=== PATIENT | female | born 1990 | race Asian ===

== ENCOUNTER → 2016-08-13 | Outpatient (CLI) | payer MEDICAID ==
[~2016-08-13] MED LIST: ACET1TAB86 PO; CONCCAP2 PO; IBUP-232 PO; ONETMIS2; ONETTES4; PREN1MIS11 PO
== END ==
LOC: CDED 08:27
DX: O24.419 Gestational diabetes mellitus in pregnancy, unspecified control (principal)
CPT/HCPCS: 97802

== ENCOUNTER 2016-10-20 09:39 | Inpatient (IN) | payer MEDICAID ==
[2016-10-20] VITALS (61 sets, daily range): BP systolic 100–129; BP diastolic 55–91; PULSE 72–113; RESP 18; TEMP 97.7–98.2
[~2016-10-20 09:39] MED LIST changes: -ACET1TAB86 PO; -IBUP-232 PO
[2016-10-20] MEDS ORDERED: LACTATED RINGER'S 1000 ML INJ 1,000 ML IV PRN (10:59)
[2016-10-20] MEDS ORDERED: ONDANSETRON HCL 4 MG/2 ML VIAL IV PRN (11:00)
[2016-10-20] MEDS ORDERED: OXYTOCIN 30 UNITS-500ML PREMIX 500 ML IV ONE (11:00)
[2016-10-20] MEDS ORDERED: MINERAL OIL 10 ML VIAL TOPICAL PRN (11:00)
[2016-10-20] MEDS ORDERED: LIDOCAINE HCL 1% 50 ML VIAL I-DERMAL PRN (11:00)
[2016-10-20] MEDS ORDERED: LIDOCAINE HCL 1% 50 ML VIAL INFIL PRN (11:00)
[2016-10-20] MEDS ORDERED: SODIUM CHLORID 0.9% 500 ML INJ 500 ML IV PRN (11:00)
[2016-10-20] MEDS ORDERED: CITRIC ACID-SODIUM CITRATE LIQ 30 ML UDC PO SCH (11:00)
[2016-10-20] MEDS ORDERED: SODIUM CHLOR 0.9% 1000 ML INJ 1,000 ML IV PRN (11:19)
--- NOTE | 2016-10-20 11:30 | HHI.HP ---
History & Physical H&P HPI HPI Chief Complaint Contractions Date Seen: October 20, 2016 Time Seen: 11:00 Travel History International Travel<30 Days: No Contact w/Intl Traveler<30Days: No Known Affected Area: No History of Present Illness HPI Patient is a 26-year-old at 39 weeks and 5 days presents with contractions since last night. Patient reports that she first started feeling contractions around 12 AM to 1 AM last night. She then fell asleep. She woke up from sleep a couple of times with abdominal pain. From 7 AM to 8 AM, she noticed that she was having contractions about every 6 minutes. She reports having 10 contractions in an hour. In addition to her bilateral suprapubic crampy abdominal pain, she also endorses some bilateral lower back pain. She denies any leakage of fluid, vaginal bleeding. She endorses movement. Review of systems negative. Para: 0 : 1 History (Limited) History Past Medical History Narrative Medical Patient with a history of gestational diabetes controlled with diet this . Obstetric History Obstetric History Patient reports that this is her first . Past Surgical History Surgical History: No Previous Surgery Family History Family History: Negative Allergies-Medications Allergies-Medications (Allergen,Severity, Reaction): Coded Allergies: No Known Allergies (Unverified , 10/19/16) Home Meds Active Scripts Onetouch Lancets 1 Mis Mis #1 BOX .ROUTE DIRECTED Ref 6 Prov:Joan Monroe CNM [facility] 08/13/16 Onetouch Ultra Test Strips 1 Shanta Shanta #1 STRIP .ROUTE QID PRN (blood sugar) Ref 6 Prov:Joan Monroe CNM [facility] 08/13/16 Vit W/ Fe Fum-Iron Po (Concept Dha 53.5-38-1 mg)1 Cap Cap1 Cap PO DAILY #60 BOTTLE Ref 8 Prov:Joan Monroe CNM [facility] 07/05/16 W/O Vit A W/ Fe Carbo Pack (Citranatal 90 Dha Pack)90-1 & 300 Mg Pack1 Ea PO DAILY #6 BLISTER Ref 11 30 day supply. Prov:Parul Pradhan [facility] 04/07/16 W/O Vit A W/ Fe Carbo Pack (Citranatal 90 Dha Pack)90-1 & 300 Mg Pack Sample #2 Prov:Joan Monroe CNM [facility] 04/07/16 ROS Review of Systems General / Constitutional: No: Fever, Chills Eyes: No: Blurred Vision, Visual changes HENT: No: Headaches Cardiovascular: No: Chest Pain or Discomfort, Edema Respiratory: No: Short of Breath Gastrointestinal: Abdominal Pain (bilateral suprapubic crampy abdominal pain), No: Nausea, Vomiting Genitourinary: No: Dysuria Musculoskeletal: No: Edema Neurologic: No: Headache Physical Exam Physical Exam Borderline tachycardic with a pulse of 99, but otherwise afebrile with vital signs stable and within normal limits. Narrative GENERAL: Well-nourished, well-developed patient. SKIN: Warm and dry. HEAD: Normocephalic and atraumatic. EYES: No scleral icterus. No injection or drainage. ENT: No nasal drainage noted. Mucous membranes pink. Airway patent. NECK: Supple, trachea midline. No JVD. CARDIOVASCULAR: Regular rate and rhythm without murmurs, gallops, or rubs. RESPIRATORY: Breath sounds equal bilaterally. No accessory muscle use. ABDOMEN/GI: Abdomen soft, non-tender, bowel sounds present, no rebound, no guarding Gravid to 40 weeks size GENITOURINARY: External Genitalia: intact and normal in appearance Cervix: Mid position Dilatation: 3 cm Effacement: 90% Station: 0 station Presentation: Vertex Membranes: intact Uterine Contractions: Every 3 minutes FHT's: Category: Category 1 Baseline: 140 Reactive: + Variability: Moderate Decels: None EXTREMITIES: No cyanosis or edema. BACK: Nontender without obvious deformity. No CVA tenderness. NEUROLOGICAL: Awake and alert. Motor and sensory grossly within normal limits. Five out of 5 muscle strength in all muscle groups. Normal speech. Data Data Data Vital Signs Reviewed: Yes Orders Vital Signs (Adult) .ON ADMISSION (10/20/16 10:58) ^ Labor Status (10/20/16 10:58) ^ Non Stress Test (10/20/16 10:58) Ob (2e) Additional Admit Info (10/20/16 10:57) Admit To Inpatient (10/20/16 ) Code Status (10/20/16 10:59) Vital Signs (Adult) .Per protocol (10/20/16 10:59) Activity Oob Ad Nino (10/20/16 10:59) Heart (10/20/16 10:59) Amnioinfusion (10/20/16 10:59) Diet Liquid (10/20/16 Lunch) Lactated Ringer's 1000 Ml Inj (Lr 1000 M (10/20/16 10:59) Lactated Ringer's 1000 Ml Inj (Lr 1000 M (10/20/16 10:59) Sodium Chlorid 0.9% 500 Ml Inj (Ns 500 M (10/20/16 11:00) Sodium Chlor 0.9% 1000 Ml Inj (Ns 1000 M (10/20/16 11:19) Lidocaine 1% Inj (50 Ml) (Xylocaine 1% I (10/20/16 11:00) Citric Acid-Sodium Citrate Liq (Bicitra (10/20/16 11:00) Ondansetron Inj (Zofran Inj) (10/20/16 11:00) Fentanyl Inj (Fentanyl Inj) (10/20/16 11:00) Fentanyl Inj (Fentanyl Inj) (10/20/16 11:00) Complete Blood Count With Diff (10/20/16 10:59) Hold Clot (10/20/16 10:59) Abo/Rh Blood Type (10/20/16 10:59) Urinalysis - C+S If Indicated (10/20/16 10:59) Type And Screen (10/20/16 10:59) Resp Oxygen Non Rebreathe Mask (10/20/16 ) Oxytocin 30 Units-500ml Premix (Pitocin (10/20/16 11:00) Lidocaine 1% Inj (50 Ml) (Xylocaine 1% I (10/20/16 11:00) Light Mineral Oil (Muri-Lube Oil) (10/20/16 11:00) Inpatient Certification (10/20/16 ) MDM MDM Plan Patient is a 26-year-old at 39 weeks and 5 days with a history of gestational diabetes diet controlled this who presents with contractions since last night. From 7 AM to 8 AM, she noticed that she was having contractions about every 6 minutes. On monitors here, she's having contractions every 3 minutes. Cervical exam showed 3 cm of dilation, 90% effaced , 0 station, vertex with membranes intact. FHT shows category 1 tracing, reassuring. Patient is GBS negative. Patient is requesting an epidural. 1. active labor Admit to inpatient Mineral oil Lidocaine Type and screen, UA, ABO/Rh blood type, hold clot, CBC Fentanyl Zofran Citric acid-sodium citrate liquid Clear liquid diet Monitor heart rate Monitor maternal vital signs Out of bed ad nino with category 1 tracing until patient gets epidural Epidural and garza cath Plan to recheck patient in about an hour. If patient is not progressing, will artificially rupture membranes. SDW Dr. Willard Diagnosis Diagnosis: Primary Impression: Labor and delivery, indication for care Additional Impression: Labor and delivery indication for care or intervention Zafar Jameson MD R1 October 20, 2016 11:30
[2016-10-20 11:35] LABS: AUTOMATED NEUTROPHIL # 7.9 TH/MM3 (1.8-7.7); BASOPHIL % 0.4 % (0.0-2.0); EOSINOPHIL # 0.1 TH/MM3 (0-0.4); EOSINOPHIL % 0.6 % (0.0-4.0); HEMATOCRIT 39.2 % (35.0-46.0); HEMO FLAGS DIFF FINAL; LYMPH % 13.8 % (9.0-44.0); LYMPHOCYTE # 1.4 TH/MM3 (1.0-4.8); MEAN CELL VOLUME 88.6 FL (80.0-100.0); MEAN CORPUSCULAR HEMOGLOBIN 29.5 PG (27.0-34.0); MEAN CORPUSCULAR HGB CONC 33.3 % (32.0-36.0); MONO % 6.6 % (0.0-8.0); NEUT % 78.6 % (16.0-70.0); PLATELET COUNT 168 TH/MM3 (150-450); RED BLOOD COUNT 4.43 MIL/MM3 (4.00-5.30)
[2016-10-20 11:41] LABS: BACTERIA, URINE RARE /hpf; BLOOD, URINE NEG (NEG); COMMENT (UR) CULT NOT INDICATED; CULTURE IF INDICATED CULT NOT INDICATED; GLUCOSE,URINE NEG (NEG); KETONE, URINE NEG (NEG); NITRITE,URINE NEG (NEG); SQUAMOUS EPITHELIAL CELL URINE <1 /hpf (0-5); URINE COLOR YELLOW (YELLW/STRAW)
[2016-10-20] MEDS: LACTATED RINGER'S 1000 ML INJ 1,000 ML IV SCH ×4 (12:22→18:28)
--- NOTE | 2016-10-20 13:04 | PD.LABORPN ---
Subjective Subjective Patient is a 26-year-old at 39 weeks and 5 days with a history of diet controlled gestational diabetes this who presents with contractions since last night. About every 6 minutes this morning, and having contractions every 3 minutes when she arrived here. Patient admitted in active labor with contractions and cervical dilation of 3cm. Contractions felt subjectively but not seen on monitor. Objective Vital Signs Vital Signs Date Time Temp Pulse Resp B/P Pulse Ox O2 Delivery O2 Flow Rate FiO2 10/20/16 11:30 89 117/86 10/20/16 11:30 18 Objective Vitals: Afebrile and vital signs stable and within normal limits. General: alert/oriented times 3, resting comfortably in no acute distress. CVS-extremities warm and well-perfused Breathing comfortably with no signs of respiratory distress or accessory muscle use Abd- soft, nt/nd EFM- Cat I: reactive/reassuring Contractions- q 1-2 minutes Pelvic Exam: Cervix: Dilatation: 3-4cm Effacement: 90% Station: 0 Presentation: vertex Membranes: Artificially ruptured Uterine Contractions: not seen on monitor FHT's: Category: Category 1 Baseline: 145 Reactive: + Variability: moderate Decels: none Assessment/Plan Problem List: (1) Labor and delivery, indication for care (2) Labor and delivery indication for care or intervention Assessment and Plan A/P: Patient is a 26-year-old at 39 weeks and 5 days with a history of diet controlled gestational diabetes this who presents with active labor. -AROM performed after discussed it in depth with the patient -IUPC placed -Plan on cervical check again in an hour. If not progressing, will start Pitocin. JUDAH Willard. Zafar Jameson MD R1 October 20, 2016 13:04
--- NOTE | 2016-10-20 15:49 | PD.LABORPN ---
Subjective Subjective Patient is a 26-year-old at 39 weeks and 5 days with a history of diet controlled gestational diabetes this who presents with contractions since last night. Patient admitted in active labor with contractions and cervical dilation of 3cm. s/p AROM and IUPC. Objective Vital Signs Vital Signs Date Time Temp Pulse Resp B/P Pulse Ox O2 Delivery O2 Flow Rate FiO2 10/20/16 15:07 18 10/20/16 15:07 80 115/71 10/20/16 14:00 97.9 18 10/20/16 14:00 72 119/72 10/20/16 12:59 83 119/79 10/20/16 12:58 18 10/20/16 11:30 89 117/86 10/20/16 11:30 18 Objective Pelvic Exam: Cervix: Dilatation: 4-5cm Effacement: 100% Station: 1 Presentation: Vertex Membranes:. Uterine Contractions: q3min FHT's: Category: Category 1 Baseline: 135 Reactive: + Variability: Moderate Decels: none Assessment/Plan Problem List: (1) Labor and delivery, indication for care (2) Labor and delivery indication for care or intervention Assessment and Plan Patient is a 26-year-old at 39 weeks and 5 days with a history of diet controlled gestational diabetes this who presents with contractions since last night. Patient admitted in active labor. Currently 4-5cm/100%/+1. s/ p AROM and IUPC. 1. Active labor Start Pitocin IV titration s/d/w Dr. Willard. Zafar Jameson MD R1 October 20, 2016 15:49
[2016-10-20] MEDS ORDERED: MEASLES, MUMPS, RUBELLA VACCINE 0.5 ML VIAL SQ ONE (16:00)
[2016-10-20] MEDS ORDERED: DIPHTH/TETANUS/ACEL PERTUSSIS (BOOSTER) 0.5 ML VIAL/PFS IM ONE (16:00)
[2016-10-20] MEDS: OXYTOCIN 30 UNITS-500ML PREMIX 500 ML IV SCH ×2 (16:10→16:15)
[2016-10-20] MEDS ORDERED: fentaNYL 2MCG-BUPIV 0.125% INJ 100 ML ONE (16:14)
[2016-10-20] MEDS ORDERED: NO SYSTEM NARCOTICS PRN (18:00)
[2016-10-20] MEDS ORDERED: ePHEDrine/NS 25 MG/5 ML SYR IV PRN (18:00)
[2016-10-20] MEDS ORDERED: DO NOT ADMINISTER ANTICOAGULANTS PRN (18:00)
[2016-10-20] MEDS ORDERED: fentaNYL 2MCG-BUPIV 0.125% 100 ML EPIDURAL SCH (18:00)
[2016-10-20] MEDS ORDERED: ONDANSETRON ODT 4 MG TAB PO PRN (20:30)
[2016-10-20] MEDS ORDERED: ZOLPIDEM TARTRATE 5 MG TAB PO PRN (20:30)
[2016-10-20] MEDS ORDERED: oxyCODONE/ACETAMINOPHEN 5 MG/325 MG TAB PO PRN ×2 (20:30)
[2016-10-20] MEDS ORDERED: SODIUM CHLORIDE 0.9% FLUSH 10 ML FLUSH IV FLUSH PRN (20:30)
[2016-10-20] MEDS ORDERED: WITCH HAZEL 50%/GLYCERIN 12.5% 40 PAD JAR TOPICAL PRN (20:30)
[2016-10-20] MEDS ORDERED: DOCUSATE SODIUM 50 MG/SENNA 8.6 MG TAB PO PRN (20:30)
[2016-10-20] MEDS ORDERED: ALUMINUM/MAGNESIUM/SIMETH 30 ML CUP PO PRN (20:30)
[2016-10-20] MEDS ORDERED: BENZOCAINE 20% TOPICAL SPRAY 60 ML CAN TOPICAL PRN (20:30)
--- NOTE | 2016-10-20 20:42 | PD.OB.DELI ---
Delivery Date: October 20, 2016 Anesthesia: None, Epidural Episiotomy: None Vaginal Delivery: Normal Presentation: Occiput anterior Nuchal Cord: None Delayed cord clamping (45 sec): Yes Infant: Female One Minute : 7 Five Minute : 8 Weight: 2970g Placenta: Spontaneous delivery, Intact, 3 vessel cord Laceration: Perineal laceration, 2 deg Repair: Chromic running (2-0 suture x1) Additional Information Terminal meconium. 2nd degree perineal laceration repaired with running 2-[address] Willard. Assisted by Dr. Lee. Zafar Jameson MD R1 October 20, 2016 20:42
[2016-10-20] MEDS ORDERED: SODIUM CHLORIDE 0.9% FLUSH 10 ML FLUSH IV FLUSH SCH (21:00)
--- NOTE | 2016-10-21 09:00 | HHI.OB ---
Subjective Post Day: 1 Remarks Patient is a 26-year-old delivered at 39 weeks and 5 days. Patient is day 1 after . Patient's pain is well-controlled. Patient reports drinking water without any nausea or vomiting, but she has not tried eating yet. Patient reports vaginal bleeding that is crate opener than a period and getting better. Patient has not passed gas or bowel movements. Patient is walking without lower extremity pain or shortness of breath or chest pain. Patient reports desire for contraception through her PCP and bottle-feeding. Objective Vitals/I&O Vital Signs remarkable for some tachycardia up to 100 bpm, but otherwise AF asnd VSS. Date Time Temp Pulse Resp B/P Pulse Ox O2 Delivery O2 Flow Rate FiO2 10/20/16 23:00 97.7 18 10/20/16 23:00 93 121/79 10/20/16 22:10 18 10/20/16 22:00 98 117/77 10/20/16 21:49 18 10/20/16 21:45 100 114/70 10/20/16 21:30 98 112/69 10/20/16 21:25 18 10/20/16 21:16 106 114/81 10/20/16 21:10 18 10/20/16 21:00 91 116/70 10/20/16 20:55 18 10/20/16 20:45 103 112/82 10/20/16 20:40 18 10/20/16 20:31 102 108/67 10/20/16 20:30 104 10/20/16 20:20 18 10/20/16 20:20 98.2 10/20/16 20:15 111 117/70 10/20/16 20:14 18 10/20/16 20:12 108 119/68 10/20/16 19:07 98.1 10/20/16 19:05 98 10/20/16 19:00 98 107/67 10/20/16 19:00 92 10/20/16 18:55 96 10/20/16 18:50 95 10/20/16 18:45 89 10/20/16 18:40 95 10/20/16 18:35 90 10/20/16 18:30 93 109/67 10/20/16 18:30 87 10/20/16 18:27 85 106/63 10/20/16 18:27 18 10/20/16 18:25 82 10/20/16 18:20 87 10/20/16 18:15 76 10/20/16 18:10 73 10/20/16 18:05 74 10/20/16 18:00 72 116/73 10/20/16 18:00 81 10/20/16 17:40 82 10/20/16 17:40 18 10/20/16 17:40 98.1 10/20/16 17:35 75 10/20/16 17:30 86 112/73 10/20/16 17:30 85 10/20/16 17:16 88 10/20/16 17:16 113/80 10/20/16 17:15 84 10/20/16 17:05 111 10/20/16 17:00 88 10/20/16 17:00 83 113/70 10/20/16 17:00 18 10/20/16 16:55 78 10/20/16 16:55 77 116/83 10/20/16 16:50 91 10/20/16 16:50 87 110/70 10/20/16 16:45 113 10/20/16 16:45 82 121/89 10/20/16 16:40 93 10/20/16 16:40 91 115/71 10/20/16 16:35 86 115/70 10/20/16 16:35 85 10/20/16 16:32 18 10/20/16 16:30 86 111/73 10/20/16 16:30 86 10/20/16 16:27 92 122/74 10/20/16 16:25 83 10/20/16 16:25 90 129/75 10/20/16 16:21 97 100/55 10/20/16 16:20 99 10/20/16 16:19 103 120/91 10/20/16 16:13 122/79 10/20/16 16:13 81 10/20/16 16:00 86 113/80 10/20/16 15:07 18 10/20/16 15:07 80 115/71 10/20/16 14:00 97.9 18 10/20/16 14:00 72 119/72 10/20/16 12:59 83 119/79 10/20/16 12:58 18 10/20/16 11:30 89 117/86 10/20/16 11:30 18 Objective Remarks GENERAL: Well-nourished, well-developed patient. CARDIOVASCULAR: Regular rate and rhythm without murmurs, gallops, or rubs. RESPIRATORY: Breath sounds equal bilaterally. No accessory muscle use. ABDOMEN/GI: Abdomen soft, non-tender. Fundus: Firm, non-tender at umbilicus. GENITOURINARY: Light to moderate bleeding. EXTREMITIES: No cyanosis or edema, non-tender, without signs of DVT. Medications and IVs Current Medications Medications (Trade) Dose Ordered Sig/Lucia Route Start Time Stop Time Status Last Admin Miscellaneous Information No systemic narcotics to be given except... UNSCH PRN .XX 10/20/16 18:00 10/21/16 17:59 Miscellaneous Information DO NOT ADMINISTER ANY ANTICOAGUL... UNSCH PRN .XX 10/20/16 18:00 10/21/16 17:59 (ePHEDrine/NS 25 MG/5 ML SYR) 10 mg UNSCH PRN IV 10/20/16 18:00 10/21/16 17:59 (NS Flush) 2 ml BID IV FLUSH 10/20/16 21:00 (NS Flush) 2 ml UNSCH PRN IV FLUSH 10/20/16 20:30 (Tylenol) 650 mg Q4H PRN PO 10/20/16 20:30 (Motrin) 600 mg Q6H PRN PO 10/20/16 20:30 (Percocet 5-325 Mg) 1 tab Q4H PRN PO 10/20/16 20:30 (Percocet 5-325 Mg) 2 tab Q4H PRN PO 10/20/16 20:30 (Americaine 20% Top Spr) 1 spray Q4H PRN TOPICAL 10/20/16 20:30 (Tucks Pads) 1 applic QID PRN TOPICAL 10/20/16 20:30 (Lisa-Colace) 2 tab Q12H PRN PO 10/20/16 20:30 (Ambien) 5 mg HS PRN PO 10/20/16 20:30 (Mag-Al Plus Susp Liq) 15 ml Q8H PRN PO 10/20/16 20:30 (Zofran Odt) 4 mg Q6H PRN PO 10/20/16 20:30 Assessment/Plan Problem List: (1) Labor and delivery, indication for care (2) Labor and delivery indication for care or intervention Assessment and Plan Patient is a 26-year-old delivered at 39 weeks and 5 days. Patient is day 1 after . Patient was counseled to do 6 weeks of pelvic rest. Patient was counseled to follow up in 6 weeks. Patient will request follow-up and contraception through her PCP. --AF VSS --Continue routine care --Motrin and Percocet when necessary for pain --Encourage OOB --Pelvic rest for 6 weeks will need follow-up appointment at that time. --Contraception through PCP. --Anticipate discharge tomorrow D/w Dr. Willard. Zafar Jameson MD R1 Oct 21, 2016 09:00
[2016-10-21] MEDS: IBUPROFEN 600 MG TAB PO PRN ×2 (12:08→21:19)
[2016-10-21] MEDS: ACETAMINOPHEN 325 MG TAB PO PRN ×2 (12:08→21:20)
--- NOTE | 2016-10-22 09:25 | HHI.OB ---
Subjective Post Day: 2 Remarks Patient is a 26-year-old delivered at 39 weeks and 5 days. Patient is day 2 after . Patient reports that she had a lot of pain overnight, but that her pain is otherwise well-controlled. Patient reports eating and drinking without any nausea or vomiting. Patient reports normal bleeding. Patient has passed gas and a bowel movement. Patient is walking without lower extremity pain or shortness of breath. Patient reports desire for contraception through her PCP and bottle-feeding. (Zafar Jameson MD R1) Objective Vitals/I&O Patient tachycardic to the 100s overnight but otherwise afebrile and vital signs stable overnight. Objective Remarks GENERAL: Well-nourished, well-developed patient. CARDIOVASCULAR: Regular rate and rhythm without murmurs, gallops, or rubs. RESPIRATORY: Breath sounds equal bilaterally. No accessory muscle use. ABDOMEN/GI: Abdomen soft, non-tender. Fundus: Firm, non-tender at umbilicus. GENITOURINARY: Light to moderate bleeding. EXTREMITIES: No cyanosis or edema, non-tender, without signs of DVT. Medications and IVs Current Medications Medications (Trade) Dose Ordered Sig/Lucia Route Start Time Stop Time Status Last Admin (NS Flush) 2 ml BID IV FLUSH 10/20/16 21:00 (NS Flush) 2 ml UNSCH PRN IV FLUSH 10/20/16 20:30 (Tylenol) 650 mg Q4H PRN PO 10/20/16 20:30 10/21/16 21:20 (Motrin) 600 mg Q6H PRN PO 10/20/16 20:30 10/21/16 21:19 (Percocet 5-325 Mg) 1 tab Q4H PRN PO 10/20/16 20:30 (Percocet 5-325 Mg) 2 tab Q4H PRN PO 10/20/16 20:30 (Americaine 20% Top Spr) 1 spray Q4H PRN TOPICAL 10/20/16 20:30 (Tucks Pads) 1 applic QID PRN TOPICAL 10/20/16 20:30 (Lisa-Colace) 2 tab Q12H PRN PO 10/20/16 20:30 10/21/16 12:08 (Ambien) 5 mg HS PRN PO 10/20/16 20:30 (Mag-Al Plus Susp Liq) 15 ml Q8H PRN PO 10/20/16 20:30 (Zofran Odt) 4 mg Q6H PRN PO 10/20/16 20:30 (Zafar Jameson MD R1) Assessment/Plan Problem List: (1) Labor and delivery, indication for care (2) Labor and delivery indication for care or intervention (3) (normal spontaneous vaginal delivery) Assessment and Plan Patient is a 26-year-old delivered at 39 weeks and 5 days. Patient is day 2 after . Patient was counseled to do 6 weeks of pelvic rest. Patient was counseled to follow up in 6 weeks. Patient will request follow-up and contraception through her PCP. --AF VSS --Continue routine care --Motrin and Percocet when necessary for pain --Encourage OOB --Pelvic rest for 6 weeks will need follow-up appointment at that time. --Contraception through PCP. --Anticipate discharge today D/w Dr. Farris. Discharge Planning Discharge today. (Zafar Jameson MD R1) Attending Attestation The exam, history, and the medical decision-making described in the above note were completed with the assistance of the resident provider. I reviewed and agree with the findings presented. I attest that I had a [id number] encounter with the patient on the same day, and personally performed and documented my assessment and findings in the medical record. (Osito Farris MD) Zafar Jameson MD R1 Oct 22, 2016 09:25 Osito Farris MD Oct 25, 2016 10:44
[2016-10-22] MEDS ORDERED: IBUP-232 PO (09:28)
[2016-10-22] MEDS ORDERED: ACET1TAB86 PO (09:28)
--- NOTE | 2016-10-22 09:29 | HHI.DCPOC ---
Discharge Care Plan Diagnosis: (1) (normal spontaneous vaginal delivery) Report Symptoms to Your Doctor -Temperature above 100.5 degrees -Redness, of incision or excessive or foul smelling drainage -Unusual pain or calf pain -Increased vaginal bleeding -Painful or difficulty urinating -Feelings of extreme sadness or anxiety after 2 weeks Goals to Promote Your Health * To prevent worsening of your condition and complications, please follow up with your doctor within 6 weeks. * To maintain your health at the optimal level, please hydrate well, eat a balanced diet, and exercise regularly. Directions to Meet Your Goals Take your medications as prescribed Follow your dietary instruction Follow activity as directed Ensure plenty of rest for recovery Drink fluids for hydration Keep your appointments as scheduled Take your immunizations and boosters as scheduled If your symptoms worsen call your PCP, if no PCP go to Urgent Care Center or Emergency Room Smoking is Dangerous to Your Health. Avoid second hand smoke Call the 24-hour crisis hotline for domestic abuse at Zafar Jameson MD R1 Oct 22, 2016 09:29
[2016-10-22 15:32] VITALS: TEMP 98.1
== END 2016-10-22 15:40 | disposition home or self-care (01) | DRG 775 ==
LOC: HOBED 09:39 → H2EA 11:03 → H1EA 22:32
PROVIDERS: ADMIT Obstetrics & Gynecology Maternal & Fetal Medicine; ATTEND Obstetrics & Gynecology Maternal & Fetal Medicine
PROC: 10E0XZZ Delivery of Products of Conception, External Approach (ICD-10-PCS; principal; 2016-10-20)
PROC: 0KQM0ZZ Repair Perineum Muscle, Open Approach (ICD-10-PCS; 2016-10-20)
PROC: 3E0R3CZ (ICD-10-PCS; 2016-10-20)
PROC: 00HU33Z Insertion of Infusion Device into Spinal Canal, Percutaneous Approach (ICD-10-PCS; 2016-10-20)
PROC: 10907ZC Drainage of Amniotic Fluid, Therapeutic from Products of Conception, Via Natural or Artificial Opening (ICD-10-PCS; 2016-10-20)
DX: O70.1 Second degree perineal laceration during delivery (principal); Z37.0 Single live birth; O24.420 Gestational diabetes mellitus in childbirth, diet controlled; O77.0 Labor and delivery complicated by meconium in amniotic fluid; Z3A.39 39 weeks gestation of pregnancy
CPT/HCPCS: 59025; 81001; 85025; 86850; 86900; 86901; 90715; J2590; J3010; J7120